=== PATIENT | female | born 2000 ===

== ENCOUNTER 2021-05-19 08:00 | Outpatient (CLI) | payer OTHER | END 2021-05-19 23:59 | LOC: LAB.N 08:00 | PROVIDERS: ATTEND Physician Assistant | DX: R05.3 Chronic cough (principal); Z20.822 Contact with and (suspected) exposure to COVID-19 ==

== ENCOUNTER 2022-01-16 19:48 | Emergency (ER) | payer OTHER ==
[2022-01-16 20:07] VITALS: BP 130/80
== END 2022-01-16 20:14 | disposition left against medical advice (07) ==
LOC: ED 19:48
DX: Z53.21 Procedure and treatment not carried out due to patient leaving prior to being seen by health care provider (principal)